=== PATIENT | male | born 1955 | race Caucasian/White ===

== ENCOUNTER 2016-07-08 11:20 | Day surgery (SDC) | payer OTHER ==
[2016-07-02 09:20] LABS: HEMATOCRIT 47.6 % (40.0-51.0); HEMOGLOBIN 16.6 g/dL (13.6-17.8)
[2016-07-02 09:37] LABS: BUN (BLOOD UREA NITROGEN) 19 MG/DL (6-23); CHLORIDE, SERUM 104 MMOL/L (96-112); CO2 (CARBON DIOXIDE) 26 MMOL/L (24-34); CREATININE 1.02 MG/DL (0.70-1.30); GFR AFRICAN AMERICAN 90 ML/MIN (>=60); GFR NON AFRICAN AMERICAN 78 ML/MIN (>=60); GLUCOSE, SERUM 138 MG/DL (60-99); POTASSIUM, SERUM 4.1 MMOL/L (3.5-5.3); SODIUM, SERUM 141 MMOL/L (135-148)
--- NOTE | ~2016-07-08 | OP ---
Record Of Operation [facility] [address] [place] 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 PROCEDURE: Left middle finger MCP arthroplasty using Integra PyroCarbon components #30 proximal and #30 distal. PHYSICIAN: Dr. Kwok. TRANSFER TABLE OPERATOR HELPER: Criss. ANESTHESIA: General. ESTIMATED BLOOD LOSS: 5 mL. IV FLUIDS: 700 crystalloid. COMPLICATIONS: None. DISPOSITION: The patient tolerated the procedure well and was ready to be brought to the recovery room having tolerated the procedure quite well. PROCEDURE NOTE: The patient was brought to the operating room and placed in a supine position. After general anesthesia was administered, a pneumatic tourniquet was placed around the left proximal arm. The left upper extremity distal to the tourniquet was prepped and draped in the usual sterile manner. A surgical timeout was performed and all were in agreement. An Esmarch was used to exsanguinate the extremity and tourniquet was inflated. A 15 blade scalpel was used to make a 7 to 8 cm longitudinal incision starting 2 cm distal to the middle finger MCP joint and directed proximally onto the dorsal metacarpal shaft. After the skin was incised, blunt dissection was carried out and the extensor tendon was identified and split midline to reveal the MCP capsule. This was incised and slight dissection was carried out radially and ulnarly to reveal the significant arthritis of the joint. It was at this point as per unit [employer]'s instructions, the finger was flexed and the 4.5 K-wire was used as a guide wire to gain access into the middle finger metacarpal bone. The starting point was at the dorsal one-third/volar distal third and was directed directly parallel and in the center of the metacarpal shaft. Position was checked under fluoroscopy and after good position was noted, starter awl was used to make the starter position and then the cutting awl and jig were inserted and then the oscillating saw was used to remove a portion of the head keeping the collateral ligaments intact. After this was done, the finger was flexed and a similar manner was carried out for the distal portion Record Of Operation [facility] [address] [place]. [address] NAME: NEDA OWENS : 51 STATUS : [facility]#: [id number] AGE: 61 ADM/REG DATE : 07/08/16 MR#: [id number] REPORT SERV DATE: 07/08/16 DICTATED BY: BARBARA KWOK DATE: 07/08/16 REPORT STATUS : Draft TRANSCRIBED BY: SHANTELLE DATE: 07/08/16 of the procedure involving the first phalanx. The cut was made several or 1 mm proximal to the insertion of the collateral ligament and afterwards good cuts were noted and then serial broaches were then used to broach the phalanx up to a size 30. Care was taken not to damage the collateral ligaments or the dorsal cortex of the distal metacarpal bone. After a good press fit was achieved, similar serial broaching was done on the proximal side of the metacarpal bone using the appropriate metacarpal broaches. Afterwards trial components were placed and the reduction was carried out. Good stability, good laxity, and good range of motion was able to be achieved. The wound was irrigated with copious amounts of normal saline and then Irrisept irrigation was used to irrigate the wound. Afterwards, the definitive components were put into place. Care was taken not to handle the PyroCarbon with any metal and care also was taken to remove any soft tissues between the bone and each prosthesis. Afterwards, the collateral ligaments were reinforced with absorbable and nonabsorbable suture and again the finger was put through a range of motion and the finger was able to achieve 5 to 10 degrees of hyperextension, get full flexion, and there was good ample lateral motion. Position of the hardware of the prosthesis was checked under fluoroscopy. Afterwards, the capsule was closed with Vicryl suture and the extensor tendon was closed with running and interrupted Vicryl suture. Skin was closed with nylon suture, sterile dressing as per unit manager [employer]'s recommendation, keeping the wrist slightly extended and ulnarly deviated as well as keeping the MCP in full extension and the PIP joints with just a few degrees of flexion was carried out. The index and the ring fingers were kept the index and thumb were kept free from the splint. Tourniquet was released. The patient was then taken out of general anesthesia, was ready to be brought to recovery room in stable condition. CLAUDETTE/SHANTELLE Barbara Kwok M.D. / [id number] CC: Keith Griffin M.D.
[~2016-07-08 11:20] MED LIST: *UNABLE1; ASA5GR PO; ASAB PO; ASABAYER PO; ATV.5 PO; ATV1 PO; COZ25 PO; CYMBALTA60 PO; DSS PO; EFFEXOR XR150 MG PO; EFFEXOR100 MG PO; HUMULIN R1 ML; HUMULIN R1 ML SC; HUMULIN U; IMDUR30 PO; INVOKANA100 MG PO; LIPITOR20 PO; LIPITOR40 PO; LISINOPRIL40 MG PO; LOP25 PO; LOPID6 PO; LORT7 PO; LYRICA100 MG PO; LYRICA75 PO; MIRALAXPKT PO; NEUR300 PO; NITROSTAT0.4 MG SL; NORCO1 TA2 PO; NORV5 PO; NOVLOGPUMP SC; NTG150 SL; PLAVIX PO; PRIN20 PO; PROTONIX PO; RAN500 PO; RANITIDINE300 MG PO; TEKTURNA300 MG PO; ZANAFLEX 4 MG TA4 MG PO; ZANTAC300 MG PO; [UNRECOGNIZED DRUG - OTHER]
== END 2016-07-08 20:02 | disposition home or self-care (01) ==
LOC: SDC 11:20
PROVIDERS: Orthopaedic Surgery Hand Surgery
PROC: 0RQV0ZZ Repair Left Metacarpophalangeal Joint, Open Approach (ICD-10-PCS; principal; 2016-07-08 14:00)
DX: M19.042 Primary osteoarthritis, left hand (principal); I25.119 Atherosclerotic heart disease of native coronary artery with unspecified angina pectoris; I25.2 Old myocardial infarction; I10 Essential (primary) hypertension; E11.40 Type 2 diabetes mellitus with diabetic neuropathy, unspecified; E78.00 Pure hypercholesterolemia, unspecified; F41.9 Anxiety disorder, unspecified; M79.7 Fibromyalgia; M19.90 Unspecified osteoarthritis, unspecified site; K21.9 Gastro-esophageal reflux disease without esophagitis; Z95.5 Presence of coronary angioplasty implant and graft; Z88.5 Allergy status to narcotic agent; Z88.8 Allergy status to other drugs, medicaments and biological substances; Z88.0 Allergy status to penicillin; Z79.82 Long term (current) use of aspirin; Z79.02 Long term (current) use of antithrombotics/antiplatelets; Z79.899 Other long term (current) drug therapy; Z86.73 Personal history of transient ischemic attack (TIA), and cerebral infarction without residual deficits; Z87.891 Personal history of nicotine dependence; Z98.890 Other specified postprocedural states
CPT/HCPCS: 76000; 80048; 82962; 85014; 85018; 93005; A9270-GY; C1776; J0690; J2250; J2270; J2405; J2710; J3010